=== PATIENT | female | born 1970 | race Caucasian/White ===

== ENCOUNTER 2017-05-27 10:49 | Emergency (ER) | payer OTHER ==
[~2017-05-27] VITALS: Ht 165.1 cm; Wt 59.9 kg
[2017-05-27 10:52] VITALS: BP 146/87
--- NOTE | 2017-05-27 11:29 | ED HEAD/FACIAL INJ COMPLAINT ---
History of Present Illness General Chief Complaint: Fall Stated Complaint: FALL WORK RELATED INJURY Source: patient Exam Limitations: no limitations Vital Signs & Intake/Output Vital Signs & Intake/Output Vital Signs Date Time Temp Pulse Resp B/P B/P Pulse O2 O2 Flow FiO2 Mean Ox Delivery Rate 05/27 1052 97.0 91 20 146/87 99 Room Air Allergies Coded Allergies: NO KNOWN ALLERGIES (05/27/17) Triage Note: PT TO ED S/P FALL WITH HEADSTRIKE. 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 DENIES LOC. 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 WORKERS COMP FORM FILED. Triage Nurses Notes Reviewed? 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 Patient has a gradual onset of generalized neck pain since the injury. Denies any upper extremity pain weakness low back pain blurred vision nausea or vomiting and is otherwise without complaints. Past History Travel History Traveled to [place] past 21 day No Medical History Any Pertinent Medical History? 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 No Review of Systems Review of Systems Constitutional: Reports: no symptoms. EENTM: Reports: no symptoms. Respiratory: Reports: no symptoms. Cardiovascular: Reports: no symptoms. GI: Reports: no symptoms. Genitourinary: Reports: no symptoms. Musculoskeletal: Reports: see HPI. Skin: Reports: see HPI. Neurological/Psychological: Reports: see HPI. Hematologic/Endocrine: Reports: no symptoms. Immunologic/Allergic: Reports: no symptoms. All Other Systems: Reviewed and Negative Physical Exam Physical Exam General Appearance: no apparent distress, alert, comfortable Head: atraumatic Eyes: Bilateral: normal appearance, PERRL, EOMI. Ears, Nose, Throat: normal pharynx, normal ENT inspection, hearing grossly normal Neck: normal inspection, supple, full range of motion, tender lateral, no midline tenderness Respiratory: normal breath sounds, chest non-tender, no respiratory distress Cardiovascular: regular rate/rhythm Gastrointestinal: normal bowel sounds, soft, non-tender, no organomegaly Back: normal inspection, no vertebral tenderness Extremities: normal inspection, normal capillary refill, normal range of motion, no edema Cranial Nerves: normal hearing, normal speech, PERRL Coordination/Gait: normal finger to nose, normal gait Motor/Sensory: no motor/sensory deficits Skin: intact, normal color, warm/dry Comments: Cranialessentially intact Progress Differential Diagnosis: c-spine injury, facial fracture, globe injury, ICH, orbit fracture, skull fracture Plan of Care: Patient has no basilar skull fracture signs no hemotympanum no central spinous tenderness nexus criteria 0 Cranial nerves intact negative Romberg. Negative cerebellar testing patient has no concerns at this time of ICH no basilar skull facture concerns, pt has mtbi and scalp hematoma concerns, no concerns of osseous injury of the cervical spine Departure Departure Disposition: HOME OR SELF CARE Condition: Stable Clinical Impression Primary Impression: Minor head trauma Secondary Impressions: Cervical strain, Scalp hematoma Referrals: Aníbal DOOLEY,Dayron Constantino (PCP/Family) Additional Instructions: As discussed continue [id number] ibuprofen for pain and inflammation Begin the prescription of cyclobenzaprine for muscle relaxation Prescriptions waiting at [facility] follow-up with occupational medicine tomorrow if symptoms worsen or if you develop any new concerning symptom return to the emergency room Departure Forms: Customer Survey [employer] Employee Acc Report General Discharge Information
== END 2017-05-27 11:50 ==
LOC: ERH 10:49
DX: S09.90XA Unspecified injury of head, initial encounter (principal); S16.1XXA Strain of muscle, fascia and tendon at neck level, initial encounter; S00.03XA Contusion of scalp, initial encounter; W01.10XA Fall on same level from slipping, tripping and stumbling with subsequent striking against unspecified object, initial encounter; Y93.9 Activity, unspecified; Y92.234 Operating room of hospital as the place of occurrence of the external cause